=== PATIENT | male | born 1955 | race Caucasian/White ===

== ENCOUNTER 2023-01-01 08:52 | Outpatient (CLI) | payer MEDICARE, SELFPAY ==
--- NOTE | 2023-01-01 09:42 | ECG_ITS ---
Measurements Intervals [place] Rate: 73 P: 56 [place]: 150 QRS: 32 QRSD: 90 T: 54 QT: 345 QTc: 382 Interpretive Statements SINUS RHYTHM BASELINE ARTIFACT- I, II NORMAL ECG NO PREVIOUS ECG AVAILABLE FOR COMPARISON Electronically Signed On 01-01-2023 10:13:38 [facility] by Stephan Bennett D.O.
== END 2023-01-01 08:53 | disposition home or self-care (01) ==
LOC: ANHSURGERY 09:33
PROVIDERS: PCP Family Medicine; Visit Provider Surgery
DX: Z01.812 Encounter for preprocedural laboratory examination (principal); Z01.810 Encounter for preprocedural cardiovascular examination; K40.91 Unilateral inguinal hernia, without obstruction or gangrene, recurrent; I10 Essential (primary) hypertension
CPT/HCPCS: 36415; 86850; 86900; 86901; 93005

== ENCOUNTER 2023-01-05 00:26 | Day surgery (SDC) | payer MEDICARE, SELFPAY ==
[2022-12-31 14:58] VITALS: BMI 27.6
--- NOTE | 2022-12-31 15:17 | PC.NURSE ---
PRE-OP INSTRUCTIONS, PLEASE READ CAREFULLY Report to the Outpatient Waiting Room, entrance under the green pavilion located off [facility], at time _0600_ on date _01/05/23_. Planned Procedure Time: _0730_. Time changes happen often and if your time is changed the preop area will call you the afternoon before. - You and your visitor will be asked to self-screen and do not enter if you have any COVID symptoms. - Only one visitor is requested with a max of two and NO children visitors are allowed at this time. - The patient visitor may be requested to leave or wait in car when not with patient due to distancing restrictions. - A mask is optional within the hospital at this time. Patients may have clear liquids (water, carbonated beverages, clear teas, apple juice) until 3 hours prior to surgery (0430 AM) with a maximum of 20 ounces. - No food from midnight until time of surgery Take the following medications with a SIP of water the morning of surgery: __NONE__ DO NOT STOP ANY OF YOUR OTHER PRESCRIPTION MEDICATIONS PRIOR TO SURGERY ?EXCEPT THE FOLLOWING Medications to discontinue per ANESTHESIA -_VITAMINS 3 DAYS PRIOR TO SURGERY, Date to take last dose 01/01/23_ Please no make-up, nail urdu, hairspray, perfume, deodorant, or body powder the day of surgery. No jewelry (including any body piercings) or valuables the day of surgery, leave them at home. Please take a shower or bath the night before, or the morning of, surgery with an antibacterial soap. Wear comfortable, loose fitting clothing. - Jewelry must be removed prior to entering the operating room. Rings and piercings that are not removed may be cut off. - The hospital will not accept responsibility for valuables. - Please leave all valuables, including medications, at home the day of surgery. If you are going home after surgery, a licensed tractor trailer moving van driver must drive you home. - NO public transportation without another adult if you receive anesthesia. - We recommend that an adult stay with you for 24 hours following discharge. - We also recommend that you do not drive, make important decision, drink alcoholic beverages, or take any drugs that were not prescribed by your health care provider for at least 24 hours after your discharge time. Follow any additional instructions given to you from your surgeon. If you or anyone in your household have experienced Covid symptoms in the past week, please notify your surgeon or the nurse liaison at the phone number below for possible testing. Telephone instructions given to _PATIENT_and asked if any additional questions and then verbalized understanding. Patient advised to call surgeon office or pre surgery nurse liaison [phone] if any additional questions.
[2023-01-05] VITALS (9 sets, daily range): BP systolic 112–144; BP diastolic 63–85; PULSE 71–94; RESP 14–18; TEMP 36.6–36.7; O2SAT 95–99
[2023-01-05] MEDS: ACETAMINOPHEN 500 MG TABLET 1000 MG PO (06:35)
[2023-01-05] MEDS: LACTATED RINGERS 1,000 ML 30 ML IV CONT ×2 (06:40→08:51)
[2023-01-05] MEDS: KETOROLAC 15 MG/ML VIAL (*BKC) IV PUSH (06:45)
--- NOTE | 2023-01-05 07:01 | WPDANESEPPF ---
Anes - Initial Pre Proc Eval Procedure: Operation Date: 01/05/23 07:30 Proposed Procedures p Robotic Assisted Laparoscopic Repair Right Recurrent Inguinal Hernia with Mesh - Queta Mcgrath MD Date/Time: 01/05/23 07:01 Surgeon: Queta Mcgrath MD Pre Op Diagnosis: Recurrent Right Ing Hernia Patient Data Age: 67 Gender: M Height: 1.78 m Weight: 88 kg Last Vital Signs Temp 97.9 F 01/05/23 06:17 Pulse 94 01/05/23 06:17 Resp 18 01/05/23 06:17 BP 139/85 01/05/23 06:17 Pulse Ox 99 01/05/23 06:17 O2 Del Method Room Air 01/05/23 06:17 Allergies Allergy/AdvReac Type Severity Reaction Status Date / Time pseudoephedrine AdvReac Intermediate Hives Verified 01/05/23 06:50 [From [facility]] Home Medications Medication Instructions Recorded Confirmed Type aspirin 81 mg tablet,delayed 81 mg PO DAILY 05/10/20 01/05/23 History release (Aspir-) omeprazole 20 mg capsule,delayed 20 mg PO EVERY OTHER DAY 05/10/20 01/05/23 History release atorvastatin 40 mg tablet See Rx Instructions .Route 05/28/22 01/05/23 Rx .COMPLEX #90 tabs lisinopril 10 mg tablet See Rx Instructions .Route 05/28/22 01/05/23 Rx .COMPLEX #90 tabs cholecalciferol (vitamin D3) 1 cap DAILY 12/31/22 01/05/23 History fluocinonide 0.05 % topical cream 1 applic topical BID PRN Skin 12/31/22 01/05/23 History Irritation multivitamin 1 tablet DAILY 12/31/22 01/05/23 History Patient hx anesthesia problems: none Family hx anesthesia problems: none Results Review: All pre-operative results and documents have been reviewed as part of the pre-operative evaluation. [facility] Past Medical History Medical History BMI 26.0-26.9,adult BMI 27.0-27.9,adult Dermatitis Elevated lipids Essential (primary) hypertension GERD (gastroesophageal reflux disease) Hernia Surgical History Surgical History H/O bilateral inguinal hernia repair Right side repaired in the at [place] in [place] (now [facility]). Left side repaired in ~ 1989 at [facility] History of cholecystectomy Family History Family History Father Mother Ovarian cancer Sibling No problems noted. 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 Informed Consent: The patient's anesthetic plan and its attendant risks and benefits were discussed with the patient/family/POA. Questions were solicited and answers provided to the satisfaction of the patient/family/POA.
--- NOTE | 2023-01-05 07:16 | PM.IMHP ---
H&P: HPI History of Present Illness Date/Time: 01/05/23 07:16 Chief Complaint: recurrent RIH Narrative: Ruslan returns to the hospital for re-evaluation of a right inguinal hernia. Patient was last seen in our office in December 2021. Patient states the hernia has gradually increased in size and is causing him more discomfort. He states he takes Tylenol as needed for pain. He states the pain is worse with activity. He denies any problems with BM's or urinating. He is tolerating foods normally. Of note, pt c h/o bilateral IH repair. Review of Systems Review of Systems: All systems reviewed & are unremarkable except as noted in HPI and below PMFSH Past Medical History Medical History BMI 26.0-26.9,adult BMI 27.0-27.9,adult Dermatitis Elevated lipids Essential (primary) hypertension GERD (gastroesophageal reflux disease) Hernia Surgical History Surgical History H/O bilateral inguinal hernia repair Right side repaired in the at [place] in [place] (now [facility]). Left side repaired in ~ 1989 at [facility] History of cholecystectomy Family History Family History Father Mother Ovarian cancer Sibling No problems noted. 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 Gender identity (if verbalized by the patient): Male Spiritual care concerns: No Meds Home Medications and Allergies Home Medications Medication Instructions Recorded Confirmed Type aspirin 81 mg tablet,delayed 81 mg PO DAILY 05/10/20 01/05/23 History release (Aspir-) omeprazole 20 mg capsule,delayed 20 mg PO EVERY OTHER DAY 05/10/20 01/05/23 History release atorvastatin 40 mg tablet See Rx Instructions .Route 05/28/22 01/05/23 Rx .COMPLEX #90 tabs lisinopril 10 mg tablet See Rx Instructions .Route 07/27/22 03/06/23 Rx .COMPLEX #90 tabs cholecalciferol (vitamin D3) 1 cap DAILY 12/31/22 01/05/23 History fluocinonide 0.05 % topical cream 1 applic topical BID PRN Skin 12/31/22 01/05/23 History Irritation multivitamin 1 tablet DAILY 12/31/22 01/05/23 History Allergies Allergy/AdvReac Type Severity Reaction Status Date / Time pseudoephedrine AdvReac Intermediate Hives Verified 01/05/23 06:50 [From [facility]] Vital Signs Vital Signs - 24 hr 01/05/23 06:17 Temperature 36.6 C Pulse Rate 94 Respiratory Rate 18 Blood Pressure 139/85 Pulse Oximetry 99 Oxygen Delivery Room Air Exam Const: General: cooperative, comfortable and no acute distress Resp: Auscultation: clear to auscultation bilaterally Cardio: Rate: regular rate Rhythm: regular rhythm GI: Inspection: normal to inspection and non-distended GI Palp: Yes abdominal tenderness, Yes Soft to palpation, Yes Tenderness to palpation present (GI), No Guarding due to palpation present (GI), No Rigid due to palpation and Yes Hernia present (recurrent RIH) Assessment and Plan Assessment and plan (1) Recurrent right inguinal hernia: Code(s): K40.91 - Unilateral inguinal hernia, without obstruction or gangrene, recurrent Status: Acute Assessment and Plan: will setup for robotic assisted repair c mesh
--- NOTE | 2023-01-05 07:18 | WPDHPUPDATE1 ---
History and Physical Update Update Date/Time: 01/05/23 07:18 History and Physical has been reviewed, including an updated exam of the patient. There are NO changes in the patient's condition. Risks, benefits, and alternatives have been discussed and questions answered. Patient agrees to proceed with procedure.
[2023-01-05] MEDS: ceFAZolin 2 GM/D5W 50 ML 2 GM/50 ML BAG IVPB (07:29)
[2023-01-05] MEDS: BUPIVACAINE/EPINEPHRINE 0.5% 50 ML VIAL 30 ML INFILTRATE (08:04)
--- NOTE | 2023-01-05 08:50 | P.OP_ITS ---
Procedure Note - Detailed Date of Procedure 01/05/23 Pre-op Diagnosis Recurrent Right Ing Hernia Post-op Diagnosis Same Procedure Performed robotic assisted recurrent right inguinal hernia repair with mesh Surgeon Queta Mcgrath MD Anesthesia General Indications 67-year-old male with progressively worsening recurrent right inguinal hernia over the last few years Findings recurrent pantaloon right inguinal hernia Description of Procedure Patient was brought into the operating room and placed in the supine position. After adequate induction of general anesthesia, the patient was prepped and draped in normal sterile fashion. A time-out was then done to verify the patient's identity, as well as the procedure being performed. Began by making a 8 mm incision in the supraumbilical region, a Veress needle was then placed into the peritoneal cavity. CO2 gas was then insufflated and after adequate pneumoperitoneum was achieved, the Veress needle was removed. I then placed an 8 mm trocar through this incision. I then placed the endoscope through this trocar site and under direct visualization placed 2 further 8 mm ports in the right and left mid abdomen. The [employer] robot was then docked to the 3 trocar sites. I then scrubbed out and went to the robotic console. Upon examining the pelvis, it was noted that the patient had a moderate recurrent right inguinal hernia. The left side was examined and no hernia defect was noted. I began by making a preperitoneal flap approximately 6 cm superior to the defect. This flap was carried medially past the umbilical ligaments in laterally to the tra nsversalis. It then began dissection of my medial compartment taking this down to the pubic tubercle. There was noted to be a small direct inguinal hernia. This hernia was reduced. I then began the lateral dissection taking this down to the transversalis fascia. Once these compartments were achieved, I began dissection around the cord structures. A moderate indirect hernia was noted at this point. Using careful dissection, was able to reduce indirect hernia sac off the cord structures. Once this was adequately done, I went ahead and placed a large piece of 3D Max mesh into the abdominal cavity. The mesh was carefully positioned, centering the center of the mesh over the indirect defect. Once this was done, was very satisfied with our repair. Using 3-0 Vicryl sutures, I tacked the mesh medially to Missael's ligament. Two lateral sutures were placed from the mesh to the transversalis fascia. I then closed the peritoneal flap with a running 2.0 V Lock suture. The abdomen was then desufflated, and all ports were removed. All incisions were then closed with the 4.0 monocryl suture. Dermabond was placed on each wound. The patient tolerated the procedure well, was extubated in the operating room postoperatively, and will now be transferred to the recovery room in stable condition. Implants large 3DMax mesh Estimated Blood Loss 10 Drains No Packing No Pathology None sent Complications No immediate complications Condition Stable Disposition PACU [facility] Billing Surgery - Charge Forward: Surgery Billing
== END 2023-01-05 11:22 | disposition home or self-care (01) ==
PROVIDERS: PCP Family Medicine; Visit Provider Surgery
PROC: 8E0Y4CZ Robotic Assisted Procedure of Lower Extremity, Percutaneous Endoscopic Approach (ICD-10-PCS; CPT 49650; principal; 2023-01-05 07:30)
DX: K40.91 Unilateral inguinal hernia, without obstruction or gangrene, recurrent (principal); I10 Essential (primary) hypertension; K21.9 Gastro-esophageal reflux disease without esophagitis; E78.5 Hyperlipidemia, unspecified; Z79.82 Long term (current) use of aspirin
CPT/HCPCS: 49651; S2900; 36415; 86850; 86900; 86901; 93005; A9270; C1781; J0690; J1100; J1885; J2250; J2704; J3010; J7120